=== PATIENT | female | born 1970 | race Caucasian/White ===

== ENCOUNTER 2018-03-02 20:51 | Emergency (ER) | payer MEDICAID ==
[~2018-03-02] VITALS: Ht 177.8 cm; Wt 72.6 kg
[2018-03-02] MEDS ORDERED: SPIRONOLACTONE25 MG PO (21:09)
[2018-03-02] MEDS ORDERED: PROZAC20 MG PO (21:09)
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
== END 2018-03-03 01:21 | disposition home or self-care (01) ==
LOC: ED 20:51
DX: F10.229 Alcohol dependence with intoxication, unspecified (principal); Y90.6 Blood alcohol level of 120-199 mg/100 ml; T50.6X5A Adverse effect of antidotes and chelating agents, initial encounter; Z79.899 Other long term (current) drug therapy
CPT/HCPCS: 51701; 80053; 80176; 81001; 84443; 85025; 96361; 96374; 96375; 96376; 99283; G0480; J2060; J2405; J2550; J7030